=== PATIENT | male | born 1985 | race Caucasian/White ===

== ENCOUNTER 2024-07-28 11:09 | Emergency (ER) | payer OTHER, SELFPAY ==
[2024-07-28 11:46] VITALS: BP 127/91
[2024-07-28 12:01] VITALS: BMI 33.3
[2024-07-28 12:23] LABS: % Basophils 0.6 % (0-2); % Eosinophils 2.3 % (0-6); % Immature Granulocytes 0.3 % (0-0.5); % Lymphocytes 20.2 % (20.5-51.1); % Monocytes 6.1 % (1.7-9.3); % Neutrophils 70.5 % (42.2-75.2); Absolute Basophils 0.1 10^3/uL (0-0.2); Absolute Eosinophils 0.3 10^3/uL (0-0.7); Absolute Lymphocytes 2.2 10^3/uL (1.2-3.4); Absolute Monocytes 0.7 10^3/uL (0.1-0.6); Absolute Neutrophils 7.7 10^3/uL (1.4-6.5); Hematocrit 47.8 % (39.0-52.0); Hemoglobin 16.4 g/dL (13.0-18.0); Mean Corp Hgb Conc. 34.3 g/dL (33.0-37.0); Mean Corpuscular Hgb 31.3 pg (27.0-31.0); Mean Corpuscular Volume 91.2 fL (80.0-94.0); Mean Platelet Volume 9.7 fL (7.4-10.4); Nucleated Red Blood Cells % 0 % (-); Platelet Count 247 10^3/uL (130-400); Red Blood Cell Count 5.24 10^6/uL (4.70-6.10); Red Cell Dist. Width 12.3 % (11.5-14.5); White Blood Cell Count 10.9 10^3/uL (4.8-10.8)
[2024-07-28 12:38] LABS: ALT (SGPT) 38 U/L (0-50); AST (SGOT) 36 U/L (17-59); Albumin 4.6 g/dl (3.5-5.0); Alkaline Phosphatase 61 U/L (38-126); Blood Urea Nitrogen 12 mg/dl (9-20); Calcium 9.6 mg/dl (8.4-10.2); Carbon Dioxide 28 mmol/L (22-30); Chloride 102 mmol/L (98-107); Estimated Creatinine Clearance > 125 ml/min; Glucose 104 mg/dl (70-99); Potassium 4.3 mmol/L (3.5-5.1); Sodium 139 mmol/L (135-145); Total Bilirubin 0.9 mg/dl (0.2-1.3); Total Protein 7.7 g/dl (6.3-8.2); eGFR > 60.00
[2024-07-28 12:50] LABS: Troponin I < 0.012 ng/ml
[2024-07-28 13:00] VITALS: BP 130/83
[2024-07-28] MEDS: NSS 1000 IV (13:01)
[2024-07-28] MEDS: ANTIVERT 25 MG PO (13:02)
[2024-07-28] MEDS: ZOFRAN 4 MG IV (13:02)
[2024-07-28 13:34] VITALS: BP 125/107
--- NOTE | 2024-07-28 13:51 | ED.GENMED ---
History of Present Illness
General
Chief Complaint: Abdominal Symptoms
Source: patient
Time Seen by Provider: 07/28/24 12:17
History of Present Illness
History of Present Illness:
38-year-old male with no significant past medical history presenting to the emergency department for evaluation after he had persistent vomiting late Sunday evening where he noted for approximately 30 to 40 minutes persistent vomitus and towards
the end started to notice a little bit of blood intermixed with the vomitus, Sunday developed some left shoulder/chest/back pain with some tingling to the left upper extremity which continued this morning prompting him to come to the ER for further
evaluation. Today patient states he did have a little bit of loose stool. No fevers. Denies any history of similar. States he is concerned with his GI symptoms due to his father having a very aggressive form of cancer as well as other family
members with similar with father passing away quite quickly from his cancer but patient states he is not exactly sure what the cancer was called. Did not take any medications prior to arrival today. Also of note patient has been dealing with
vertiginous-like symptoms for the last few months, not much more significant today but patient states maybe a little bit more pronounced than usual. He has not followed up with anybody for the vertigo.
Past History
Past History
ED Past Medical History: None
ED Past Surgical History: Orthopedic
Social History
Tobacco: Non-smoker
Alcohol: None
Drug: None
Personal: Partner
Living: with family
Employment: Employed
Review of Systems
Review of Systems
All Other Systems: ROS reviewed and negative except as documented in HPI and ROS
Phy Exam
Physical Exam
Physical Exam:
GENERAL: Alert , in no apparent distress, somewhat anxious
HEAD: NCAT
EYE: pupils equal and reactive, clear conjunctiva
NECK: Supple
ENT: o/p clr, mmm.
CARDIAC: Regular rate and rhythm, no murmur .
LUNGS: Clear breath sounds bilaterally, no acute respiratory distress, no wheezes/rales/rhonchi
ABDOMEN: Soft, without focal tenderness, no r/g, no cvat
NEUROLOGICAL: Alert and oriented
SKIN: Warm and dry, skin intact.
MUSCULOSKELETAL: No edema, well perfused.
PSYCH: Normal and appropriate interaction.
Scores
Heart Failure Risk
Heart Failure Risk Score: Not Applicable
Heart Score for Chest Pain Patients
STEMI patient?: Not applicable
Withdrawal Assessment of Alcohol
Withdrawal Assessment Completed?: Not applicable
Course
Orders/Labs/Results
Orders:
Orders
07/28/24 12:13
Type And Crossmatch [Type+Screen] Urgent
Complete Blood Count/With Diff Urgent
Comprehensive Metabolic Panel Urgent
Troponin I Urgent
07/28/24 12:28
ABO2 Urgent
BBK Wristband Number:
Associate notified that ABO2 has been ordered: [id number]
Date: 07/28/24
Time: 12:23
Appliances Sample Maker ID: [id number]
07/28/24 12:55
CT Chest/abd/pelvis Angio W/wo Urgent
Comment:
Reason For Exam: vomiting, upper abd/back pain, vertigo
0.9% Sodium Chloride 1000 ml [Nss] 1,000 ml IV BOLUS
Meclizine [Antivert] 25 mg PO NOW STA
Ondansetron Injectable [Zofran] 4 mg IV NOW STA
Abnormal Lab Results
07/28/24
12:13
WBC 10.9 H 10^3/uL
(4.8-10.8)
MCH 31.3 H pg
(27.0-31.0)
Absolute Neuts (auto) 7.7 H 10^3/uL
(1.4-6.5)
Absolute Monos (auto) 0.7 H 10^3/uL
(0.1-0.6)
Lymphocytes % 20.2 L %
(20.5-51.1)
Glucose 104 H mg/dl
(70-99)
07/28/24 12:13
07/28/24 12:13
Vital Signs
Initial and Last Documented VS:
Initial Vital Signs
Temp Pulse Resp BP Pulse Ox
98.1 F 99 18 127/91 95
07/28/24 11:46 07/28/24 11:46 07/28/24 11:46 07/28/24 11:46 07/28/24 11:46
Last Documented Vital Signs
Temp Pulse Resp BP Pulse Ox
98.1 F 73 10 122/79 97
07/28/24 11:46 07/28/24 15:30 07/28/24 15:30 07/28/24 15:00 07/28/24 15:30
MDM/Problems Addressed
Differential Diagnosis Includes:
Hui-Pearce tear, gastroenteritis, electrolyte derangement, less concern for anemia, no risk factors for varices, GERD/gastritis, dissection considered given vertiginous symptoms combined with chest/back/arm discomfort.
MDM/Problems Addressed:
38-year-old male presenting to the ER for evaluation of hematemesis that occurred on Sunday, none since. Patient also endorses abdominal/back/left arm pain combined with vertigo although the vertigo has been persistent for the better part of a
few months. Patient has an appointment scheduled with GI due to chronic related GI issues but states today's symptoms are little bit different. He is currently hemodynamically stable and in no acute distress. Labs have been initiated in triage
which are largely unremarkable. Due to the radiating nature of the pain will order CTA of the chest abdomen pelvis to further evaluate. Anticipate as long as imaging comes back unremarkable patient will be stable for discharge home and outpatient
management.
*Radiology
Radiology exam reviewed: radiology read reviewed
*Pulse Oximetry
Patient hypoxic: no
*Converter Skimmer Interpretation
Rate: normal
Rhythm: sinus
*Critical Care Note
Total Time (30-74mins, 75-104mins- exclusive of procedures): Not Applicable
Patient Management
Escalation/DeEscalation of care consider admission/obs:
Patient CTA without any acute emergent pathologies. Possible mild colitis but this can be treated supportively. Patient notes his vertiginous symptoms resolved with meclizine so we will send him home with a short-term prescription for this. He
has arranged follow-up already with primary care provider and GI. Aware of return precautions to the ER.
ED Attending Note
-
Portions of this chart may have been created with voice recognition software.� Occasional wrong word or��sound alike� substitutions may have occurred due to the inherent limitations of voice recognition software.
Discharge Plan
Departure
Patient Disposition: Home (Routine Discharge)
Date of Disposition: 07/28/24
Time of Disposition: 15:23
Patient with high blood pressure during this ER visit?: No
Discharge Problem:
Vertigo, Nausea and vomiting, Dorsalgia
Instructions: Abdominal Pain
Prescriptions:
New
meclizine 25 mg tablet
25 mg PO TID PRN (Reason: dizziness) Qty: 12 0RF
Referrals:
Jim Wong MD [Family Provider] -
Interventions
Interventions:
*Risk Screen - Suicide Last Done: 07/28/24 11:46
*General Assessment Last Done: 07/28/24 11:46
*Neglect/Abuse Screening Last Done: 07/28/24 11:46
*ED COVID-19 Vaccine History Last Done: 07/28/24 12:02
*Nursing Disposition Last Done: 07/28/24 15:43
FM-Xsyqta-Trockssvzr Assessment Last Done: 07/28/24 12:11
Discharge Date and Time
Print Language: SETSWANA
[2024-07-28 14:00] VITALS: BP 117/92
[2024-07-28 15:00] VITALS: BP 122/79
== END 2024-07-28 15:43 | disposition home or self-care (01) ==
LOC: EMR 11:09
PROVIDERS: EMERGENCY PHYSICIAN Emergency Medicine; FAMILY PHYSICIAN Family Medicine
DX: R11.2 Nausea with vomiting, unspecified (principal); R42 Dizziness and giddiness; M54.9 Dorsalgia, unspecified
CPT/HCPCS: 99285; 96374; 96361; 71275; 74174; 80053; 84484; 85025; 86850; 86900; 86901; Q9967

== ENCOUNTER 2025-02-03 08:02 | Inpatient (IN) | payer OTHER, SELFPAY ==
[2025-02-02 22:46] VITALS: BP 127/89
[2025-02-02 23:10] LABS: Urine Character Clear (Clear)
[2025-02-02 23:14] LABS: Hematocrit 44.4 % (39.0-52.0); Hemoglobin 16.1 g/dL (13.0-18.0); Mean Corp Hgb Conc. 36.3 g/dL (33.0-37.0); Mean Corpuscular Volume 89.9 fL (80.0-94.0); Nucleated Red Blood Cells % 0 % (-); Platelet Count 246 10^3/uL (130-400); Red Cell Dist. Width 12.0 % (11.5-14.5)
[2025-02-02 23:19] LABS: Urine Squamous Cell 0-2 /LPF (Few)
[2025-02-02 23:33] LABS: ALT (SGPT) 236 U/L (0-50); Albumin 4.4 g/dl (3.5-5.0); Alkaline Phosphatase 49 U/L (38-126); Blood Urea Nitrogen 13 mg/dl (9-20); Calcium 8.9 mg/dl (8.4-10.2); Carbon Dioxide 30 mmol/L (22-30); Chloride 109 mmol/L (98-107); Glucose 94 mg/dl (70-99); Potassium 4.1 mmol/L (3.5-5.1); Sodium 141 mmol/L (135-145); Total Protein 7.2 g/dl (6.3-8.2); eGFR > 60.00
[2025-02-02 23:40] LABS: Lipase 183 U/L (23-300)
[2025-02-02 23:46] VITALS: BMI 31.9
[2025-02-02] MEDS: NSS 1000 IV (23:46)
[2025-02-02 23:57] LABS: AST (SGOT) 1454 U/L (17-59)
[2025-02-03] VITALS (10 sets, daily range): BP systolic 95–138; BP diastolic 51–87; BMI 31.8
--- NOTE | 2025-02-03 00:56 | ED.GENMED ---
History of Present Illness
<Sandra Castillo MD, Resident - Last Filed: 02/03/25 02:32>
General
Chief Complaint: Musculo-Skeletal Complaint
Source: patient and significant other
Exam Limitations: none
Time Seen by Provider: 02/02/25 23:43
Nursing documentation reviewed up to this point in time: agreed with
History of Present Illness
History of Present Illness:
Mr. 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
His pain in his legs, arms and abdomen have increased each day. It is painful for him to stand up or adjust his lower legs on his hospital bed. He is concerned about his dark brown urine as well. During his intense work on Sunday, he vomited 3
times, as well as 1 time after. He denied bloody or bilious vomiting. He took ibuprofen and is wary of avoiding ibuprofen in the setting of rhabdomyolysis.
He endorses acid reflux. He denied chest pain or shortness of breath during the workout.
Past History
<Sandra Castillo MD, Resident - Last Filed: 02/03/25 02:32>
Past History
ED Past Medical History: None
ED Past Surgical History: Orthopedic
Social History
Tobacco: Non-smoker
Alcohol: None
Drug: None
Personal: Partner
Living: with family
Employment: Employed
Review of Systems
<Sandra Castillo MD, Resident - Last Filed: 02/03/25 02:32>
Review of Systems
All Other Systems: ROS reviewed and negative except as documented in HPI and ROS
Phy Exam
<Sandra aCstillo MD, Resident - Last Filed: 02/03/25 02:32>
Physical Exam
Physical Exam:
General: In no acute distress
Cardiac: Regular rate and rhythm
No pedal edema
Lungs: Clear to station bilaterally
Abdomen: No CVA tenderness
Tenderness to palpation, greatest in the lower abdomen
Morillo sign negative
Normal bowel sounds
Eyes: Anicteric
Neuro: No asterixis
Skin: No jaundice. Warm, dry
Course
<Sandra Castillo MD, Resident - Last Filed: 02/03/25 02:32>
Orders/Labs/Results
Orders:
Orders
02/02/25 22:49
IV Insert/Care/Rem.- Treatment PRN
02/02/25 22:50
Electrocardiogram (*1) Urgent
Reason for Study: Abdominal Pain
EKG- Treatment ONCE
02/02/25 22:55
Add On- LAB Urgent
Tests Added?: total cpk
02/02/25 22:57
Complete Blood Count/With Diff Urgent
Comprehensive Metabolic Panel Urgent
Creatine [Creatine Phosphokinase] Urgent
Lipase Urgent
Urinalysis Reflex To Culture Urgent
Date Specimen was Collected: 02/02/25
Time Specimen was Collected: 22:50
Urine Microscopic Reflex Cult Urgent
Urine Culture Urgent
CORY Source: U
Specimen Description:
Date Specimen was Collected: 02/02/25
Time Specimen was Collected: 22:50
02/02/25 23:38
0.9% Sodium Chloride 1000 ml [Nss] 1,000 ml IV BOLUS
Abnormal Lab Results
02/02/25
22:57
WBC 15.4 H 10^3/uL
(4.8-10.8)
MCH 32.6 H pg
(27.0-31.0)
Abs Immat Gran (auto) 0.1 H 10^3/uL
(0-0.05)
Absolute Neuts (auto) 10.3 H 10^3/uL
(1.4-6.5)
Absolute Lymphs (auto) 3.6 H 10^3/uL
(1.2-3.4)
Absolute Monos (auto) 1.1 H 10^3/uL
(0.1-0.6)
Chloride 109 H mmol/L
(98-107)
AST 1454 H* U/L
(17-59)
ALT 236 H U/L
(0-50)
Creatine Kinase 317359 H U/L
(55-170)
Ur Occult Blood Reflex 4+ A
(Negative)
Leukocyte Esterase Rfl 1+ A
(Negative)
Urine RBC 3-6 A /HPF
(0-2)
Urine Bacteria (Reflex) Few A
(Negative)
Urine Glucose 1+ A
(Negative)
Urine Albumin (Reflex) 3+ A
(Neg - Trace)
02/02/25 22:57
02/02/25 22:57
Vital Signs
Initial and Last Documented VS:
Initial Vital Signs
Temp Pulse Resp BP Pulse Ox
97.7 F 99 16 127/89 99
02/02/25 22:46 02/02/25 22:46 02/02/25 22:46 02/02/25 22:46 02/02/25 22:46
Last Documented Vital Signs
Temp Pulse Resp BP Pulse Ox
97.7 F 99 16 127/89 99
02/02/25 22:46 02/02/25 22:46 02/02/25 22:46 02/02/25 22:46 02/03/25 01:01
<Cb Hathaway MD - Last Filed: 02/03/25 02:28>
Orders/Labs/Results
Orders:
Orders
02/02/25 22:49
IV Insert/Care/Rem.- Treatment PRN
02/02/25 22:50
Electrocardiogram (*1) Urgent
Reason for Study: Abdominal Pain
EKG- Treatment ONCE
02/02/25 22:55
Add On- LAB Urgent
Tests Added?: total cpk
02/02/25 22:57
Complete Blood Count/With Diff Urgent
Comprehensive Metabolic Panel Urgent
Creatine [Creatine Phosphokinase] Urgent
Lipase Urgent
Urinalysis Reflex To Culture Urgent
Date Specimen was Collected: 02/02/25
Time Specimen was Collected: 22:50
Urine Microscopic Reflex Cult Urgent
Urine Culture Urgent
CORY Source: U
Specimen Description:
Date Specimen was Collected: 02/02/25
Time Specimen was Collected: 22:50
02/02/25 23:38
0.9% Sodium Chloride 1000 ml [Nss] 1,000 ml IV BOLUS
Abnormal Lab Results
02/02/25
22:57
WBC 15.4 H 10^3/uL
(4.8-10.8)
MCH 32.6 H pg
(27.0-31.0)
Abs Immat Gran (auto) 0.1 H 10^3/uL
(0-0.05)
Absolute Neuts (auto) 10.3 H 10^3/uL
(1.4-6.5)
Absolute Lymphs (auto) 3.6 H 10^3/uL
(1.2-3.4)
Absolute Monos (auto) 1.1 H 10^3/uL
(0.1-0.6)
Chloride 109 H mmol/L
(98-107)
AST 1454 H* U/L
(17-59)
ALT 236 H U/L
(0-50)
Creatine Kinase 795561 H U/L
(55-170)
Ur Occult Blood Reflex 4+ A
(Negative)
Leukocyte Esterase Rfl 1+ A
(Negative)
Urine RBC 3-6 A /HPF
(0-2)
Urine Bacteria (Reflex) Few A
(Negative)
Urine Glucose 1+ A
(Negative)
Urine Albumin (Reflex) 3+ A
(Neg - Trace)
02/02/25 22:57
02/02/25 22:57
Vital Signs
Initial and Last Documented VS:
Initial Vital Signs
Temp Pulse Resp BP Pulse Ox
97.7 F 99 16 127/89 99
02/02/25 22:46 02/02/25 22:46 02/02/25 22:46 02/02/25 22:46 02/02/25 22:46
Last Documented Vital Signs
Temp Pulse Resp BP Pulse Ox
97.7 F 99 16 127/89 99
02/02/25 22:46 02/02/25 22:46 02/02/25 22:46 02/02/25 22:46 02/03/25 01:01
<Sandra Castillo MD, Resident - Last Filed: 02/03/25 02:32>
MDM/Problems Addressed
Differential Diagnosis Includes:
Rhabdomyolysis
Impending renal failure
Transaminitis:
Rhabdomyolysis
Chronic steatosis
Hepatotoxic drugs: Antibiotics
Alcohol use
MDM/Problems Addressed:
Mr. Daniel Best is a 39-year-old male presenting in rhabdomyolysis with transaminitis and potential impending MOON.
Creatine kinase 125,000
AST 1454
ALT 236
Creatinine 0.9
BUN 13
Chloride 109
White blood cells 15.4
Urinalysis: Consistent with myoglobinuria and skin annette contamination
Blood 4+, RBC 3-6, albumin 3+, nitrate negative, leukocyte esterase 1+, few bacteria, squamous epithelial cells 0-2
The patient showed outside hospital labs that included normal LFTs in December 2024. The patient also showed a right upper quadrant ultrasound report in 2021 that reported steatosis. The patient reports that since he learned of fatty liver in 2021 he
has watched his alcohol intake and ingestion of drugs that are hepatotoxic. He is undergoing GI workup for diarrhea with urgency. He has received multiple colonoscopies. He does not have any liver or gallbladder diagnoses thus far. He also
reported undergoing cardiac stress testing several months ago that was only positive for tachycardia to 140s during exertion.
<Sandra Castillo MD, Resident - Last Filed: 02/03/25 02:32>
*Pulse Oximetry
SaO2: 99
Oxygen Mode of Delivery: Room air
Patient hypoxic: no
*Critical Care Note
Total Time (30-74mins, 75-104mins- exclusive of procedures): Not Applicable
ED Attending Note
<Sandra Castillo MD, Resident - Last Filed: 02/03/25 02:32>
-
Portions of this chart may have been created with voice recognition software.� Occasional wrong word or��sound alike� substitutions may have occurred due to the inherent limitations of voice recognition software.
<Cb Hathaway MD - Last Filed: 02/03/25 02:28>
ED Attending Note
Patient seen and examined by attending physician: Yes
ED Attending Note:
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 During the workout, he along with other participants experienced significant
sweating and multiple vomiting episodes. Denies loss of consciousness. Denies headache. Denies dizziness. Denies loss of sensation or weakness. Denies direct trauma. Starting yesterday, patient started to notice dark urine. Patient otherwise
is healthy without significant past medical history.
Physical Exam
General: mild painful distress, not acutely ill. afebrile
Head: nc/at. eomi
Neck: supple. normal range of motion.
Heart: s1/s2 regular rate and rhythm, no murmur.
Lungs: no acute respiratory distress. clear bilaterally
Abdomen: normal bowel sounds. mild diffuse tenderness to palpation over lower abdomen, without distention
Neuro: alert and oriented x 3. no focal neurological deficits
Skin: no rash
Psychiatric: well kept. interactive and cooperative
Extremities: no edema. no calf tenderness. mild b/l thigh tenderness to palpation
History, exam, and blood work consistent with acute rhabdomyolysis, resulting in elevation of liver function tests as well as CPK level. Patient otherwise remains neurovascularly intact with stable vital signs. Patient will be admitted for
continual IV hydration and further assessment.
Discharge Plan
Departure
Patient Disposition: Admit
Date of Disposition: 02/03/25
Time of Disposition: 02:31
Admit to: Med/Surg
Presentation/result/management discussed w/ accepting MD/DO: Hospitalist
Patient with high blood pressure during this ER visit?: No
Condition: Fair
Discharge Problem:
Rhabdomyolysis, Abnormal LFTs (liver function tests)
Interventions
Interventions:
*Risk Screen - Suicide Last Done: 02/02/25 22:46
*General Assessment Last Done: 02/02/25 22:46
*Neglect/Abuse Screening Last Done: 02/02/25 22:46
ED-Musculoskeletal Assessment Last Done: 02/02/25 23:53
--- NOTE | 2025-02-03 02:25 | DOWNTIME ---
There was a [employer] Client Intensive Care Unit Nurse Downtime on 02/03/2025 from 0100 to 02/03/2025 at 0220. Downtime documentation of patient's care, including medication administrations, has been reconciled in the electronic record per guidelines. Refer to the
patient's paper chart under the miscellaneous tab to see printed paper medication records and downtime forms.
--- NOTE | 2025-02-03 03:15 | HPS.HSE ---
Family Physician
-
Family Physician: Jim Wong
Chief Complaint
-
Dark urine
History of Present Illness
This is a 39-year-old male with past medical history significant for hypertension and GERD who presents to the emergency department with generalized aches and pain and changes in color of his urine.
And had a interval exercise lasting for about 1 hour today. This was extremely strenuous involving both interval training, cardiovascular exercise and weightlifting. After arriving home from the exercise he started noticing severe generalized pain
in his shoulders and hips as well as his legs.
He then noticed that his urine was brown and cloudy. He tried to hydrate himself he has some clearing of the urine and then it turned dark and cloudy again. He denied any dysuria. He denies having any flank pain. He has no history of kidney
stones. He reported the symptoms to supervising physician who recommended that the patient be transferred to the emergency department.
Patient denied any recreational drug use. He denies any stimulant use (he is on Adderall 15 twice daily). He denies any tobacco, vaping, supplement use.
In the emergency department he was afebrile, blood pressure was 127/80 with a pulse of 99. He was satting 99% on room air. ECG shows a normal sinus rhythm at a rate of [address] or T wave changes. Is white count was 15.4 hemoglobin 16.1
platelet count of 246. His electrolytes were all stable. BUN 13 creatinine 0.9. He has a CPK of 104,864. AST was 1450 ALT of 36. Lipase was negative.
Medical History
Past Medical History
Past Medical History: Reports GERD and Hypercholesterolemia
Past Surgical History: Reports Other
Social History
Tobacco: Non-smoker
Alcohol: Occasional
Drug: None
Personal:
Living: With Family
Employment: Employed
Family History
Family History: CAD and Cancer
Allergies / Home Medications
Allergies reflects when Allergies were last updated in [facility].
Home Medications with original date entered in [facility]
Allergy/Medication List:
Allergies
Allergy/AdvReac Type Severity Reaction Status Date / Time
No Known Allergies Allergy Unverified 07/28/24 11:51
Home Medications
dextroamphetamine-amphetamine 15 mg tablet (Adderall) 15 mg PO BID 02/03/25
omega 4-ekf-jvx-fish oil 500 mg (200mg-300mg)-1,000 mg capsule 2,000 cap PO BID 02/03/25
pantoprazole 40 mg tablet,delayed release (Protonix) 40 mg PO DAILY 02/03/25
Review of Systems
-
Constitutional: Reports No Symptoms
EENT: Reports No Symptoms
Respiratory: Reports No Symptoms
Cardiac: Reports No Symptoms
Abdomen/GI: Reports No Symptoms
: Reports Dark Urine
Musculoskeletal: Reports No Symptoms
Skin: Reports No Symptoms
Neurological: Reports No Symptoms
Endocrine: Reports No Symptoms
Hematologic/Lymphatic: Reports No Symptoms
Psych: Reports No Symptoms
Physical Exam
Vital Signs
Vital Signs
Temp Pulse Resp BP Pulse Ox
97.7 F 99 16 116/74 98
02/02/25 22:46 02/02/25 22:46 02/02/25 22:46 02/03/25 01:30 02/03/25 01:31
Physical Exam
General: Well Developed, Well Nourished and No Apparent Distress
HEENT: NormoCephalic, Moist mucous membranes and Atraumatic
Respiratory: Clear
Cardiac: S1/S2 and Regular Rhythm; No Murmur or Rub
GI: Soft, Non Tender, Non Distended and Normal Bowel Sounds; No Organomegaly
Rectal: Deferred by Provider
Genito-urinary: No costovertebral tender
Musculoskeletal: No Clubbing, No Cyanosis and No Edema
Skin: No Rash
Neuro: AO x 3 and Nonfocal/grossly intact
Hematologic/Lymphatic: No Lymphadenopathy
Laboratory Results
-
02/02/25 22:57
02/02/25 22:57
Laboratory Results
Total Bilirubin 0.6 mg/dl (0.2-1.3) 02/02/25 22:57
AST 1454 U/L (17-59) H* 02/02/25 22:57
ALT 236 U/L (0-50) H 02/02/25 22:57
Alkaline Phosphatase 49 U/L (38-126) 02/02/25 22:57
Lipase 183 U/L (23-300) 02/02/25 22:57
Data Reviewed
-
Medical Tests (Nuc Med, Echo, EKG etc): Image Personally Visualized and interpreted
Lab Data: Labs Reviewed by me
Old Records: Reviewed
Impression/Plan
-
IMPRESSION:
Assessment and plan 39-year-old old developed rhabdomyolysis after interval training. CPK greater than 100,000 AST 1454. Fortunately BUN/creatinine are stable at 13 and 0.9. Patient is making urine normally. UA is slightly cloudy with 4+ blood
Plan
Severe rhabdomyolysis, preserve renal function
-Admit to MedSurg observation
- Continue with aggressive diuresis, normal saline at 250 mL/h for continuous urine output
- Trend CPK every 8 hours
- BUN/creatinine daily
- Monitor ins and outs
- Avoid nephrotoxin
- Pain control and antiemetic
- DVT prophylaxis�SCDs
CODE STATUS�full code
[2025-02-03] MEDS: NSS 1000 IV ×4 (04:24→21:27)
[2025-02-03] MEDS: DILAUDID 1 MG IV ×4 (04:24→17:13)
[2025-02-03 04:54] LABS: Hematocrit 40.0 % (39.0-52.0); Hemoglobin 14.3 g/dL (13.0-18.0); Mean Corp Hgb Conc. 35.8 g/dL (33.0-37.0); Mean Corpuscular Volume 91.5 fL (80.0-94.0); Platelet Count 204 10^3/uL (130-400); Red Cell Dist. Width 12.0 % (11.5-14.5)
[2025-02-03 05:28] LABS: ALT (SGPT) 200 U/L (0-50); AST (SGOT) 1041 U/L (17-59); Albumin 3.5 g/dl (3.5-5.0); Alkaline Phosphatase 33 U/L (38-126); Blood Urea Nitrogen 14 mg/dl (9-20); Calcium 8.1 mg/dl (8.4-10.2); Carbon Dioxide 24 mmol/L (22-30); Chloride 113 mmol/L (98-107); Estimated Creatinine Clearance > 125 ml/min; Glucose 97 mg/dl (70-99); Potassium 4.4 mmol/L (3.5-5.1); Sodium 138 mmol/L (135-145); Total Protein 5.9 g/dl (6.3-8.2); eGFR > 60.00
[2025-02-03] MEDS: ADDERALL 15 MG PO (08:41)
[2025-02-03] MEDS: PROTONIX 40 MG PO (08:41)
[2025-02-03] MEDS: NICODERM TRANSDERMAL 14 MG TRANSDERM (10:05)
--- NOTE | 2025-02-03 10:20 | CM ---
CM met with pt bedside
Pt resides with his SO, 4 y/o son, and SO's 17, 20, 22 y/o stepchildren
They reside in a split level home with 1 DEEP, 3 steps to main living area and 8 steps to bed/bath
Pt is indep with his ADLs, denies use of DMEs
Notes finances are tight due to employment attorney bills as he recently won custody of 4 y/o son
Denies insecurities- offered [employer] and pt declined
PCP- Jim Wong
Rx- ZARA Patel
Discharge Disposition- anticipate home no needs
[2025-02-03] MEDS: TYLENOL 650 MG PO (11:51)
[2025-02-03] MEDS: ZOFRAN 4 MG IV (19:10)
[2025-02-04] MEDS: NSS 1000 IV (05:33)
[2025-02-04 07:51] VITALS: BP 129/76
[2025-02-04] MEDS: ADDERALL 15 MG PO (08:43)
[2025-02-04] MEDS: PROTONIX 40 MG PO (08:43)
[2025-02-04] MEDS: NICODERM TRANSDERMAL 14 MG TRANSDERM (08:43)
[2025-02-04 10:46] LABS: Blood Urea Nitrogen 9 mg/dl (9-20); Calcium 9.4 mg/dl (8.4-10.2); Carbon Dioxide 27 mmol/L (22-30); Chloride 107 mmol/L (98-107); Estimated Creatinine Clearance > 125 ml/min; Glucose 163 mg/dl (70-99); Potassium 4.3 mmol/L (3.5-5.1); Sodium 139 mmol/L (135-145); eGFR > 60.00
[2025-02-04 11:23] VITALS: BP 127/80
--- NOTE | 2025-02-04 13:56 | CM ---
MD entered order for discharge.
SPoke with pt at bedside . He said he was ready for discharge.
Anita SO will drive him home.
PLAN Home no needs
--- NOTE | 2025-02-04 14:08 | W.PN.HOSP.TC ---
Today's Communication/Plan
-
d/c home
Assessment / Plan
Assessment / Plan
1. Acute rhabdomyolysis
- From doing strenuous activity/exertion
- Significant CPK elevation of ~120k, rapidly trending down
- Renal function remains normal
- Maintained on IV fluid for last 24 hours
- Patient subjectively feeling better and requested to be discharged as patient have legal things to take care of
- Advised patient to increase oral intake for next few days
2. ADD
- Maintain on home dose of Adderall
3. Gastroesophageal reflux disease
- Maintain on Protonix
DVT PPX - scd
Full code
More than 30 minutes spent in discharge including
Final examination of the patient
Summarizing hospital stay
Instructions for continuing care to all relevant caregivers
Preparation of discharge records, prescriptions, and referral forms
Total time spent (in minutes): 39 mins
Anticipated Discharge: Today
Subjective/Interval History
-
Date of Service: February 04, 2025
no complains overnight
feeling better
Objective Data
-
Labs:
Laboratory Results
02/04/25
09:29
Sodium 139
Potassium 4.3
Chloride 107
Carbon Dioxide 27
BUN 9
Creatinine 0.8
Glucose 163 H
Calcium 9.4
Vital Signs:
Vital Signs
Temp Pulse Resp BP Pulse Ox
98.2 F 105 18 127/80 100
02/04/25 11:23 02/04/25 11:23 02/04/25 11:23 02/04/25 11:23 02/04/25 11:23
I&O
02/03/25 02/04/25 02/05/25
06:59 06:59 06:59
Intake Total 240 / 240 240 / 240
Output Total 600 / 600
Balance -360 / -360 240 / 240
Review of Systems
-
Respiratory: Reports No Symptoms
Cardiac: Reports No Symptoms
Abdomen/GI: Reports No Symptoms
Physical Exam
-
General: No Apparent Distress and Comfortable
HEENT: Negative Oxygen
Respiratory: Clear to Auscultation
Cardiac: Regular Rhythm and S1/S2; Negative Murmur or Rub
GI: Soft, Nontender, Nondistended and Normal Bowel Sounds
Musculoskeletal: No Edema
Neuro: Awake, Alert, Oriented, No Motor Deficits and Nonfocal/Grossly Intact
Psych: Calm
--- NOTE | 2025-02-05 15:30 | W.DCSUMMARY ---
Discharge Summary
Discharge Data
Date of Admission: 02/03/25
Date of Discharge: 02/04/25
-
Pending Results: No
Hospital Course
Discharging Physician : Dr Jonah Nixon
Disposition : To home
Primary care physician : Jim Wong
Principal Discharge diagnosis :
Acute rhabdomyolysis
Chronic Discharge diagnosis :
Attention deficit disorder
Gastroesophageal reflux disease
Hospital Course :
Patient is a 39-year-old male with no signal past medical history came to ER with generalized body ache nausea and vomiting. Patient apparently was undergoing evaluation for [employer] physical entrance and exerting himself as part of test.
Patient started having significant nausea vomiting and body ache after finishing up the test. Patient came to ER for evaluation where patient was found to having significant rhabdomyolysis with CPK in range of 120k. Renal function were within
normal range. Patient was started on IV hydration and was monitored in the hospital. Within 48 hours patient had improvement in symptoms with rapidly downtrending CPK level. Patient was discharged home with instruction to continue with increased
liquid intake postdischarge.
Important imaging findings :
None
Procedure findings :
None
Discharge Plan
-
Patient Disposition: Home (Routine Discharge)
Discharge Diagnosis/Procedures: Rhabdomyolysis from exertion
Condition: Fair
Diet: Regular
Additional Diets: Increase solute containing liquid intake for next few days, Avoid alcohol intake for next 5 days
Activity: As tolerated
Driving Restrictions: As prior to admission
Bathing Restrictions: OK to Shower
Referrals:
Jim Wong MD [Family Provider, [facility]] - in one week
Prescriptions:
Continued
pantoprazole [Protonix] 40 mg Tablet,Delayed Release (Dr/Ec)
40 mg PO DAILY
dextroamphetamine-amphetamine [Adderall] 15 mg Tablet
15 mg PO DAILY
omega-3 acid ethyl esters 1 gram capsule
2 g PO BID
Discharge Orders:
Discharge Patient (As Directed); Ordered 02/04/25
Ordered By: Jonah Nixon
Discharge Date and Time
Discharge Date/Time: 02/04/25 13:03
Print Language: ALBANIAN
== END 2025-02-04 13:03 | disposition home or self-care (01) | DRG 558 ==
LOC: 4 EAST ACU 08:02
PROVIDERS: Nurse Practitioner Family; Student in an Organized Health Care Education/Training Program; ADMITTING PHYSICIAN Internal Medicine; ATTENDING PHYSICIAN Hospitalist; EMERGENCY PHYSICIAN Emergency Medicine; FAMILY PHYSICIAN Family Medicine
DX: M62.82 Rhabdomyolysis (principal); K21.9 Gastro-esophageal reflux disease without esophagitis; E78.00 Pure hypercholesterolemia, unspecified; I10 Essential (primary) hypertension; Z87.891 Personal history of nicotine dependence
CPT/HCPCS: 80048; 80053; 80076; 81003; 81015; 82550; 83690; 85025; 85027; 87086; 93005; 99406